=== PATIENT | female | born 2000 | race Caucasian/White ===

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

== ENCOUNTER 2021-12-05 14:12 | Observation (INO) ==
[2021-12-05 16:21] LABS: Basophils # (auto) 0.04 K/uL (0-0.2); Basophils % (auto) 0.4 %; Eosinophils # (auto) 0.15 K/uL (0-0.50); Eosinophils % (auto) 1.6 %; Hematocrit (blood only) 40.4 % (34.1-44.9); Hemoglobin 13.4 g/dl (12.0-16.0); Immature Granulocytes # (auto) 0.02 K/uL (0.00-0.02); Immature Granulocytes % (auto) 0.2 %; Lymphocytes # (auto) 2.52 K/uL (1.2-3.4); Lymphocytes % (auto) 26.2 %; Mean Corpuscular Hemoglobin 27.5 pg (25.0-34.0); Mean Corpuscular Hgb Conc 33.2 g/dL (32.0-36.0); Mean Corpuscular Volume 82.8 fL (80.0-100.0); Mean Platelet Volume 9.9 fL (9.4-12.3); Monocytes # (auto) 0.68 K/uL (0.24-0.82); Monocytes % (auto) 7.1 %; Neutrophils # (auto) 6.21 K/uL (1.4-6.5); Neutrophils % (auto) 64.5 %; Platelet Count 418 K/uL (130-400); RDW Coefficient of Variation 12.7 % (11.5-14.5); Red Blood Count 4.88 M/uL (3.93-5.22); White Blood Count 9.62 K/ul (4.8-10.8)
[2021-12-05] MEDS ORDERED: SODIUM CHLORIDE 0.9% 1000ML 500 ML IV ONE (16:37)
[2021-12-05] MEDS ORDERED: MoRPHine SULFATE 4 MG/ML 1 ML CARP\\VIAL IV STA ×2 (16:37→18:45)
[2021-12-05] MEDS ORDERED: ONDANSETRON INJ 2 MG/ML 2 ML VIAL IV STA (16:37)
--- NOTE | 2021-12-05 16:41 | Emergency Department Note ---
Impression & Plan Cholelithiasis ADMIT ED Provider Note HPI: The patient is a 21-year-old female who presents emergency department with a chief complaint of right upper quadrant abdominal pain. Patient states she has had the symptoms for about the past 3 to 4 days. Patient states it is a burning type pain in her right upper quadrant, epigastrium, does radiate somewhat from this area to her right flank and back. Patient states she has not had any vomiting. Patient states she was concerned about potential gallbladder pathology and therefore came to the ED today for assessment. On arrival the patient is hypertensive but otherwise in no acute distress, she is saturating well on room air, heart rate is within normal limits, she is otherwise nontoxic- appearing on my initial evaluation. ROS: -GI: Right upper quadrant pain, nausea *10 point review systems was conducted and is otherwise negative unless stated above *Outpatient medications and allergy history reviewed PE: General: Alert, NAD, obese HEENT: Normocephalic, atraumatic Eyes: Extraocular eye movement is intact, no scleral erythema Pulmonary: Clear to auscultation bilaterally, no wheezing Cardio: Regular rate and rhythm GI: Abdomen is soft, tenderness in the right upper quadrant to palpation, no guarding or rigidity : No suprapubic tenderness MSK: No evidence of trauma or malformation of the extremities, no edema Skin: No evidence of rash Neuro: Alert, no focal deficits Psychiatric: Cooperative Medical Decision Making: Patient presented to the emergency department with some right upper quadrant discomfort, nausea, stated that this discomfort was radiating to her back. Patient describes it as a "burning". Patient was concerned about potential gallbladder pathology therefore presented to the ED for further evaluation today. IV was established, patient was given IV morphine and IV Zofran for symptoms, she was ordered an IV fluid bolus. Ultrasound imaging of the right upper quadrant was also ordered. Ultrasound imaging shows evidence of gallbladder distention with cholelithiasis, no pericholecystic fluid is noted. Patient does not have any transaminitis. On my reassessment following morphine and Zofran the patient is continue to have discomfort. Case was discussed with on-call general surgery, Dr. Ward, who is in agreement for consultation, midlevel provider for general surgery, Talha Gomez, did evaluate the patient at the bedside, given the patient's complaint of ongoing pain she is requesting admission for general surgery evaluation for possible cholecystectomy. Patient will be admitted to the general surgery service of Dr. Ward following the bedside evaluation by the physician commissary assistant. Patient was admitted in stable condition for further care. Diagnosis: 1. Cholelithiasis with gallbladder distention 2. Abdominal pain, intractable 3. Nausea and vomiting Disposition: Admission Senthil Orozco DO Emergency Medicine Past Med/Surg History Medical History (Updated 12/05/21 @ 23:42 by Senthil Orozco DO) Asthma Social History Smoking Status: Never smoker Preferred Language: [place] Feels Safe at Home: Yes Allergies Allergies Allergy/AdvReac Type Severity Reaction Status Date / Time No Known Allergies Allergy Unverified 12/05/21 20:17 Home Meds Home Medications Medication Instructions Recorded Confirmed cetirizine 10 mg tablet (Zyrtec) 10 mg PO DAILY PRN ALLERGIES 10/30/19 12/05/21 cyanocobalamin (vitamin B-12) 1,000 mcg PO DAILY 10/30/19 12/05/21 1,000 mcg tablet (Vitamin B-12) levothyroxine 25 mcg tablet 25 mcg PO DAILY 10/30/19 12/05/21 triamcinolone acetonide 0.1 % 1 applic topical BID PRN flare ups 10/30/19 12/05/21 topical cream drospirenone 3 mg-ethinyl 1 tab PO DAILY 12/05/21 12/05/21 estradiol 0.02 mg tablet (Vestura (28)) ibuprofen 200 mg tablet 400 mg PO Q6H PRN Pain 12/05/21 12/05/21 metformin 500 mg tablet,extended 1,000 mg PO DAILY 12/05/21 12/05/21 release 24 hr omeprazole 20 mg capsule,delayed 20 mg PO DAILY 12/05/21 12/05/21 release ondansetron HCl 4 mg tablet 4 mg PO Q6 PRN Nausea 12/05/21 12/05/21 Results & Data (ED) Vital Signs Vital Signs - 24 hr 12/05/21 14:38 12/05/21 17:00 12/05/21 19:00 Temperature 36.4 C L Temperature Source Temporal Artery Scan Pulse Rate 98 H Pulse Rate [Left Finger] 82 87 Pulse Rhythm Regular Pulse Rhythm [Left Finger] Regular Pulse Strength Normal Respiratory Rate 20 18 22 Respiratory Effort / Characteristics Non-Labored Spontaneous Respiratory Depth Normal Normal Respiratory Pattern Regular Blood Pressure 181/106 H Blood Pressure [Left Arm] 130/79 132/79 Blood Pressure Mean 131 Blood Pressure Mean [Left Arm] 96 96 Blood Pressure Position Sitting Blood Pressure Position [Left Arm] Semi-fowlers Pulse Oximetry 100 100 98 Oxygen Delivery Method Room Air Room Air Room Air Sepsis Recent Fever Within 48 Hours No Sepsis New/Unexplained Change in Mental Status No Sepsis Action Taken by Nursing No Action Required Laboratory Data Result diagrams: 12/05/21 Unknown 12/05/21 Unknown Lab Results 12/05/21 12/05/21 Range/Units 17:02 17:07 Urine Color Yellow Urine Appearance Cloudy A (Clear) Urine pH 5.5 (4.5-7.5) Ur Specific [place] 1.023 (1.000-1.030) Urine Protein Negative (Negative) Urine Glucose (UA) Negative (Negative) Urine Ketones Negative (Negative) Urine Blood Negative (Negative) Urine Nitrite Negative (Negative) Urine Bilirubin Negative (Negative) Urine Urobilinogen Negative (Negative) Ur Leukocyte Esterase 1+ H (Negative) Urine WBC (Auto) 10-30 H (0-5) /hpf Urine RBC (Auto) 10-30 H (0-4) /hpf U Hyaline Cast (Auto) 5-10 H (0-5) /lpf U Epithel Cells (Auto) >30 H (0-5) /lpf Urine Bacteria (Auto) 3+ H (Negative) POC Ur Test NEG (NEG) Administered Medications Lactated Ringer's (Lr) 1,000 mls @ 75 mls/hr IV .[id number] [facility] Stop: 01/04/22 19:59 Last Admin: 12/05/21 23:37 Dose: 75 mls/hr Documented By: Infusion: 12/05/21 23:37 Dose: 75 mls/hr Documented By: Admin: 12/05/21 20:35 Dose: 75 mls/hr Documented By: SANDY Cefoxitin Sodium 2,000 mg/ (Dextrose) 60 mls @ 100 mls/hr IV Q6H [facility] Stop: 12/15/21 20:29 Last Infusion: 12/05/21 23:26 Dose: 100 mls/hr Documented By: Admin: 12/05/21 22:45 Dose: 100 mls/hr Documented By: SANDY Triamcinolone Acetonide (Triamcinolone Acet 0.1% Cr 15 Gm Tube) 1 appln TOP BID DEDE Stop: 01/04/22 23:21 Last Admin: 12/05/21 23:37 Dose: Not Given Documented By: BENY Discontinued Medications Acetaminophen (Acetaminophen 1000 Mg/100 Ml Iv) Confirm Administered Dose 1,000 mg IV .STK-MED ONE Stop: 12/05/21 19:54 Last Admin: 12/05/21 20:05 Dose: 1,000 mg Documented By: SANDY Sodium Chloride (Nss 1000ml) 500 mls @ 999 mls/hr IV .Q31M ONE Stop: 12/05/21 17:07 Last Infusion: 12/05/21 19:01 Dose: 0 mls/hr Documented By: Admin: 12/05/21 16:55 Dose: 999 mls/hr Documented By: LEN Morphine Sulfate (Morphine Sulfate 4 Mg/Ml 1 Ml Carp\\Vial) 4 mg IV NOW STA Stop: 12/05/21 16:38 Last Admin: 12/05/21 16:58 Dose: 4 mg Documented By: LEN Morphine Sulfate (Morphine Sulfate 4 Mg/Ml 1 Ml Carp\\Vial) 4 mg IV NOW STA Stop: 12/05/21 18:46 Last Admin: 12/05/21 18:55 Dose: 4 mg Documented By: SANDY Ondansetron HCl (Ondansetron Inj 2 Mg/Ml 2 Ml Vial) 4 mg IV NOW STA Stop: 12/05/21 16:38 Last Admin: 12/05/21 16:56 Dose: 4 mg Documented By: LEN Ondansetron HCl (Ondansetron Inj 2 Mg/Ml 2 Ml Vial) Confirm Administered Dose 4 mg .ROUTE .STK-MED ONE Stop: 12/05/21 19:57 Last Admin: 12/05/21 20:06 Dose: 4 mg Documented By: SANDY Imaging Data Radiologist's Impression: Gallbladder Ultrasound 12/05/21 16:37 US gallbladder HISTORY: 21 years-old Female RUQ pain, nausea acute right upper quadrant abdominal pain with nausea COMPARISON: CT abdomen and pelvis 09/21/2016 TECHNIQUE: Multiple real-time sonographic images of the abdominal right upper quadrant were obtained assessing grayscale appearance and color flow FINDINGS: The pancreas is mostly obscured by bowel gas. Unremarkable liver. No hepatic mass identified. The liver measures 16.5 cm in length. Mild gallbladder distention with shadowing cholelithiasis. The gallbladder wall measures within the upper limits of normal at 3 mm. No pericholecystic fluid. The sonographic Salter sign was unable to be assessed secondary to patient recently receiving pain medication. Nondilated common bile duct, 4 mm. The imaged right kidney is unremarkable without hydronephrosis. IMPRESSION: 1. Mildly distended gallbladder with cholelithiasis. The gallbladder wall measures within the upper limits of normal, however there is no appreciable pericholecystic fluid and the sonographic Salter sign was unable to be assessed. These findings could be correlated with nuclear medicine hepatobiliary scan to exclude acute cholecystitis. 2. No biliary ductal dilation. ACT 112: Negative or not required by law. The above report was generated using voice recognition software. It may contain grammatical, syntax or spelling errors. Electronically signed by: Tho Zhu M.D. 12/05/2021 5:48 PM Discharge Plan Visit Data Chief Complaint: Back Injury/Pain Stated Complaint: PAIN WHERE GALLBLADDER IS, SHOULDER AND BACK PAIN ED Provider: Senthil Orozco Discharge Problem: Cholelithiasis Patient Disposition: Admitted As Inpatient
[2021-12-05 16:46] LABS: Albumin Globulin Ratio 1.4 (0.9-2); Albumin Level 4.1 gm/dl (3.4-5.0); BUN Creatinine Ratio 14.1 (10-20); Bilirubin,Total 0.3 mg/dl (0.2-1.0); Calcium 9.3 mg/dl (8.5-10.1); Creatinine Clr Calc Pharmacy 182.8 ml/min; Est GFR (African American) 141.1 ml/min; Est GFR (Non-African American) 121.8 ml/min; Globulin 2.9 gm/dl (2.5-4.0)
[2021-12-05 17:25] LABS: Appearance Urine Cloudy (Clear); Bacteria Urine Automated 3+ (Negative); Bilirubin Urine Negative (Negative); Blood Urine Negative (Negative); Color Urine Yellow; Epithelial Cell Urine Auto >30 /lpf (0-5); Glucose Urine UA Negative (Negative); Ketones Urine Negative (Negative); Leukocyte Esterase Urine 1+ (Negative); Nitrite Urine Negative (Negative); Protein Urine Negative (Negative); Specific Gravity Urine 1.023 (1.000-1.030); Urobilinogen Urine Negative (Negative); pH Urine 5.5 (4.5-7.5)
--- NOTE | 2021-12-05 17:49 | Ultrasound Report ---
US gallbladder HISTORY: 21 years-old Female RUQ pain, nausea acute right upper quadrant abdominal pain with nausea COMPARISON: CT abdomen and pelvis 09/21/2016 TECHNIQUE: Multiple real-time sonographic images of the abdominal right upper quadrant were obtained assessing grayscale appearance and color flow FINDINGS: The pancreas is mostly obscured by bowel gas. Unremarkable liver. No hepatic mass identified. The chanelle er measures 16.5 cm in length. Mild gallbladder distention with shadowing cholelithiasis. The gallbla dder wall measures within the upper limits of normal at 3 mm. No pericholecystic fluid. The sonograph ic Salter sign was unable to be assessed secondary to patient recently receiving pain medication. Nondilated common bile duct, 4 mm. The imaged right kidney is unremarkable without hydronephrosis. IMPRESSION: 1. Mildly distended gallbladder with cholelithiasis. The gallbladder wall measures within the upper l imits of normal, however there is no appreciable pericholecystic fluid and the sonographic Salter sig n was unable to be assessed. These findings could be correlated with nuclear medicine hepatobiliary s can to exclude acute cholecystitis. 2. No biliary ductal dilation. ACT 112: Negative or not required by law. The above report was generated using voice recognition software. It may contain grammatical, syntax o r spelling errors. Electronically signed by: Tho Zhu M.D. 12/05/2021 5:48 PM
--- NOTE | 2021-12-05 19:48 | History & Physical Report ---
Date of Service December 05, 2021 Assessment & Plan (1) Cholelithiasis: Plan: I suspect the patient is suffering from biliary colic. Although there is no overt convincing evidence of cholecystitis on her ultrasound she may be developing this condition as her gallbladder wall is borderline in thickness. As patient is having continued pain despite administration of intravenous morphine we will proceed as follows: Will admit to the hospital Provide analgesics Provide antiemetics Provide hydration with IV fluids We will allow her to have clear liquids up until midnight tonight, at which time she will be made n.p.o. except for medicines We will administer antibiotics in the form of cefoxitin We will tentatively plan on a laparoscopic, possible open cholecystectomy with Dr. Ward on 12/06/2021 We will check a preoperative COVID test Additional recommendations be forthcoming based on operative findings and her postoperative recovery Will use SCDs for DVT prevention, no chemical means due to planned surgery She will be a level 1 full code History of Present Illness Chief Complaint: Cholelithiasis Primary Care Provider: Elvis Garcia MD This is a 21-year-old female who presented to the emergency department secondary to abdominal pain. Patient says that she has been having abdominal pain for several months. She says that the pain is primarily located in her right flank as well as the right upper quadrant. She says that the pain oftentimes come several hours after eating. She says the pain usually self resolves. With the patient's current presentation she notes that she has been having pain for approximately 4 days and it has been constant over this time. Again the patient is located in the right upper quadrant of her abdomen with some radiation to her back. She has had nausea without vomiting. She denies any fevers, shakes, or chills. She notes that the pain is improved with morphine and does not note any provocative factors. Pain currently is not radiating. She denies any prior abdominal surgeries. She notes that her last oral intake was at approximate 12:00 PM today. Concerning past medical history the patient does note that she has hypothyroidism, insulin resistance, and GERD Concerning past surgical history she denies any prior surgeries Concerning social history she is a non-smoker Concerning family history she notes a family history of coronary artery disease Since arrival to the emergency department patient has had labs and imaging which I independent reviewed. CBC revealed white blood cell count, hemoglobin and hematocrit were all normal. Platelet count was 418,000. Chemistry profile showed sodium, potassium, BUN, and creatinine were normal. Patient did not have any elevation of her total bilirubin, transaminases, alkaline phosphatase, or lipase. Urinalysis did show 1+ leukocyte Estrace and 10-30 white blood cells per high-power field along with 3+ bacteria. Urine test was noted to be negative. A COVID test is pending. A gallbladder ultrasound showed that her gallbladder was mildly distended with numerous gallstones. The gallbladder wall was within the upper limits of normal thickness at approximately 3 mm. There is no pericholecystic fluid noted. At the time of my interview the patient was in no distress but did have persistent right upper quadrant pain despite receiving 8 mg of intravenous morphine. Allergies Allergy/AdvReac Type Severity Reaction Status Date / Time No Known Allergies Allergy Unverified 10/30/19 21:54 Home Medications Medication Instructions Recorded Confirmed Type cetirizine 10 mg tablet (Zyrtec) 10 mg PO DAILY PRN ALLERGIES 10/30/19 10/30/19 History cyanocobalamin (vitamin B-12) 1,000 mcg PO DAILY 10/30/19 10/30/19 History 1,000 mcg tablet (Vitamin B-12) drospirenone 3 mg-ethinyl 1 tab PO DAILY 10/30/19 10/30/19 History estradiol 0.02 mg tablet (Gianvi (28)) levothyroxine 25 mcg tablet 25 mcg PO DAILY 10/30/19 10/30/19 History triamcinolone acetonide 0.1 % 1 applic topical BID 10/30/19 10/30/19 History topical cream Past Med/Surg History Medical History (Updated 12/05/21 @ 19:47 by Herber Gomez PA-C) Asthma Social History Smoking Status: Never smoker Preferred Language: Israeli Feels Safe at Home: Yes Review of Systems Constitutional: no fever Eyes: no eye pain Ear, Nose, Mouth, Throat: no ear pain Respiratory: no cough and no dyspnea Cardiovascular: no chest pain Gastrointestinal: as per Subjective / HPI, + abdominal pain and + nausea; no vomiting Genitourinary: no dysuria Musculoskeletal: + back pain (Right flank) Integumentary: no rash Neurologic: no localized weakness Physical Exam Constitutional: well developed, well nourished and + obese; no acute distress Eyes: + anicteric sclerae ENMT: Ears: no hearing impairment and no external ear abnormality Mucous membranes are moist Neck: trachea midline Respiratory: normal respiratory effort; no respiratory distress and no labored breathing Breath sounds are slightly decreased at bases Cardiovascular: Rate/Rhythm: regular rate and regular rhythm Gastrointestinal (Abdomen): Abdomen is rotund but soft and nondistended. It is nonrigid. Bowel sounds are present. There is no rebound tenderness or guarding. The patient did not have pain with palpation in the right upper quadrant with a positive Salter sign. Musculoskeletal: No calf tenderness Skin: no rashes Neurologic: moves all extremities Psychiatric: A+Ox3, euthymic affect Results & Data Results & Data ([facility]) Vital Signs (Past 12 Hours) Vital Signs Temp Pulse Pulse Resp BP BP Pulse Ox 12/05/21 17:00 82 18 130/79 100 12/05/21 14:38 36.4 C L 98 H 20 181/106 H 100 O2 Del Method 12/05/21 17:00 Room Air 12/05/21 14:38 Room Air Supervising Physician Co-Signing Physician Notes Patient discussed with JESUS Salazar, labs and imaging reviewed. 21 y/o morbidly obese female with abdominal pain. WBC and labs normal, US with stones, distention, borderline GBW. cholelithiasis and intractable biliary colic. Will admit for obs, plan for lap kathrine tomorrow based on bed and OR availability. PG Care Time/CCT Total # of Minutes Spent Total Time Spent with Patient: Total time spent is greater than 50% in coordination of care (as documented) at patient's floor/unit and/or counseling patient: Coding Level of Care Code INT OBSERVATION CARE 70M LVL 3 Diagnoses Cholelithiasis K80.20
[2021-12-05] MEDS ORDERED: ONDANSETRON INJ 2 MG/ML 2 ML VIAL IV PRN (19:49)
[2021-12-05] MEDS ORDERED: MoRPHine SULFATE 4 MG/ML 1 ML CARP\\VIAL IV PRN (19:49)
[2021-12-05] MEDS ORDERED: ACETAMINOPHEN 1000 MG/100 ML IV IV ONE (19:53)
[2021-12-05] MEDS ORDERED: ONDANSETRON INJ 2 MG/ML 2 ML VIAL ONE (19:56)
[2021-12-05] MEDS: LACTATED RINGER'S 1,000 ML IV SCH ×2 (20:35→23:37)
[2021-12-05] MEDS: cefOXitin 2,000 MG in DEXTROSE 5% 50 ML IV SCH (22:45)
[2021-12-05] MEDS: TRIAMCINOLONE ACET 0.1% CR 15 GM TUBE TOP SCH (23:37)
[2021-12-06] MEDS: cefOXitin 2,000 MG in DEXTROSE 5% 50 ML IV SCH ×2 (02:08→07:49)
[2021-12-06] MEDS ORDERED: LEVOTHYROXINE SODIUM 25 MCG TABLET PO SCH (06:30)
[2021-12-06] MEDS: ACETAMINOPHEN 1,000 MG/100 ML VIAL IV PRN ×2 (06:40→14:12)
[2021-12-06 06:45] LABS: Basophils # (auto) 0.03 K/uL (0-0.2); Basophils % (auto) 0.4 %; Eosinophils # (auto) 0.15 K/uL (0-0.50); Eosinophils % (auto) 1.9 %; Hematocrit (blood only) 35.1 % (34.1-44.9); Hemoglobin 11.6 g/dl (12.0-16.0); Immature Granulocytes # (auto) 0.01 K/uL (0.00-0.02); Immature Granulocytes % (auto) 0.1 %; Lymphocytes # (auto) 2.92 K/uL (1.2-3.4); Lymphocytes % (auto) 37.9 %; Mean Corpuscular Hemoglobin 27.2 pg (25.0-34.0); Mean Corpuscular Volume 82.4 fL (80.0-100.0); Mean Platelet Volume 9.6 fL (9.4-12.3); Monocytes # (auto) 0.57 K/uL (0.24-0.82); Monocytes % (auto) 7.4 %; Neutrophils # (auto) 4.02 K/uL (1.4-6.5); Neutrophils % (auto) 52.3 %; Platelet Count 321 K/uL (130-400); RDW Coefficient of Variation 12.7 % (11.5-14.5); RDW Standard Deviation 38.2 fL (36.4-46.3); Red Blood Count 4.26 M/uL (3.93-5.22)
[2021-12-06 07:14] LABS: Albumin Globulin Ratio 1.5 (0.9-2); Albumin Level 3.5 gm/dl (3.4-5.0); BUN Creatinine Ratio 12.9 (10-20); Bilirubin,Total 0.4 mg/dl (0.2-1.0); Calcium 8.7 mg/dl (8.5-10.1); Creatinine Clr Calc Pharmacy 184.8 ml/min; Est GFR (African American) 143.5 ml/min; Est GFR (Non-African American) 123.9 ml/min; Globulin 2.4 gm/dl (2.5-4.0); Potassium 4.3 mmol/L (3.5-5.1); Total Protein 5.9 gm/dl (6.0-8.3)
[2021-12-06] MEDS: TRIAMCINOLONE ACET 0.1% CR 15 GM TUBE TOP SCH (07:45)
[2021-12-06] MEDS ORDERED: NEOSTIGMINE METHYLSULFATE 1 MG/ML 10ML VIAL ONE ×5 (09:09→10:38)
[2021-12-06] MEDS ORDERED: fentaNYL citrate 100 MCG/2 ML VIAL ONE ×3 (09:09→11:24)
[2021-12-06] MEDS ORDERED: ONDANSETRON INJ 2 MG/ML 2 ML VIAL ONE (09:09)
[2021-12-06] MEDS ORDERED: GLYCOPYRROLATE 0.2 MG/ML VIAL ONE ×2 (09:09→10:38)
[2021-12-06] MEDS ORDERED: DEXAMETHASONE SOD INJ 4 MG/ML VIAL ONE (09:09)
[2021-12-06] MEDS ORDERED: ROCURONIUM BROMIDE 10 MG/ML 5 ML VIAL IV ONE (09:09)
[2021-12-06] MEDS ORDERED: PROPOFOL IV EMULSION 10 MG/ML 20 ML VIAL IV ONE (09:09)
--- NOTE | 2021-12-06 09:26 | Anesthesiology Consultation ---
Date of Service December 06, 2021 Assessment & Plan (1) Encounter for pre-operative examination: Chart Review Chart Review: Acceptable Risk for Surgery and Patient NOT seen in Pre Admission Testing Consults Requested none History Surgery Operation Date: 12/06/21 11:00 Proposed Procedures p Laparoscopic Cholecystectomy - Anmol Ward DO, EVELYN Height/Weight Height: 5 ft 7 in Weight: 137.8 kg Allergies Allergy/AdvReac Type Severity Reaction Status Date / Time No Known Allergies Allergy Unverified 12/05/21 20:17 Medications Home Medications Medication Instructions Recorded Confirmed Last Taken cetirizine 10 mg tablet (Zyrtec) 10 mg PO DAILY PRN ALLERGIES 10/30/19 12/05/21 Unknown cyanocobalamin (vitamin B-12) 1,000 mcg PO DAILY 10/30/19 12/05/21 Unknown 1,000 mcg tablet (Vitamin B-12) levothyroxine 25 mcg tablet 25 mcg PO DAILY 10/30/19 12/05/21 12/05/21 11:00 triamcinolone acetonide 0.1 % 1 applic topical BID PRN flare ups 10/30/19 12/05/21 Unknown topical cream drospirenone 3 mg-ethinyl 1 tab PO DAILY 12/05/21 12/05/21 Unknown estradiol 0.02 mg tablet (Vestura (28)) ibuprofen 200 mg tablet 400 mg PO Q6H PRN Pain 12/05/21 12/05/21 Unknown metformin 500 mg tablet,extended 1,000 mg PO DAILY 12/05/21 12/05/21 12/05/21 11:00 release 24 hr omeprazole 20 mg capsule,delayed 20 mg PO DAILY 12/05/21 12/05/21 Unknown release ondansetron HCl 4 mg tablet 4 mg PO Q6 PRN Nausea 12/05/21 12/05/21 Unknown Active Medications Generic Name Dose Route Start Last Admin Trade Name Freq PRN Reason Stop Dose Admin Lactated Ringer's 1,000 mls @ 75 mls/hr 12/05/21 20:00 12/06/21 08:29 Lr IV 01/04/22 19:59 75 mls/hr .[id number] DEDE Infusion Acetaminophen 1,000 mg in 100 mls @ 400 mls/hr 12/05/21 19:49 12/06/21 07:13 Ofirmev IV 12/08/21 19:48 Infused Q8H PRN Infusion pain Cefoxitin Sodium 2,000 mg/ 60 mls @ 100 mls/hr 12/05/21 20:30 12/06/21 08:29 Dextrose IV 12/15/21 20:29 Infused Q6H DEDE Infusion Levothyroxine Sodium 25 mcg 12/06/21 06:30 12/06/21 05:41 Levothyroxine Sodium 25 Mcg Tablet PO 01/05/22 06:29 25 mcg DAILYBB DEDE Administration Miscellaneous 1 each 12/06/21 00:00 12/06/21 07:45 Order Awaiting Action: Drospirenone-Ethinyl Estradiol [Gieladiovi (28)] 3-0.02 Mg Tablet N/A 01/05/22 00:00 Not Given QS DEDE Morphine Sulfate 3 mg 12/05/21 19:49 12/06/21 02:28 Morphine Sulfate 4 Mg/Ml 1 Ml Carp\Vial IV 12/19/21 19:48 3 mg Q3H PRN Administration Pain Triamcinolone Acetonide 1 appln 12/05/21 23:22 12/06/21 07:45 Triamcinolone Acet 0.1% Cr 15 Gm Tube TOP 01/04/22 23:21 Not Given BID DEDE NPO Date Last Intake of Fluids: 12/05/21 Time Last Intake of Fluids: 23:00 Date Last Intake of Solids: 12/05/21 Time Last Intake of Solids: 12:00 Past Medical History Medical History (Updated 12/06/21 @ 09:26 by Troy Grossman, DO) Asthma Social History Smoking Status: Never smoker Do You Dip or Chew Tobacco: No Hx Alcohol Use: No Hx Substance Use: No Physical Exam Vital Signs Last Vital Signs Temp 97.9 F 12/06/21 09:15 Pulse 75 12/06/21 09:15 Resp 22 12/06/21 09:15 BP 161/89 H 12/06/21 09:15 Pulse Ox 98 12/06/21 09:15 O2 Del Method 12/06/21 09:15 Testing Laboratory Results 12/06/21 06:34 12/06/21 06:34 Urine Color Yellow 12/05/21 17:02 Urine Appearance Cloudy (Clear) A 12/05/21 17:02 Urine pH 5.5 (4.5-7.5) 12/05/21 17:02 Ur Specific [place] 1.023 (1.000-1.030) 12/05/21 17:02 Urine Protein Negative (Negative) 12/05/21 17:02 Urine Glucose (UA) Negative (Negative) 12/05/21 17:02 Urine Ketones Negative (Negative) 12/05/21 17:02 Urine Nitrite Negative (Negative) 12/05/21 17:02 Ur Leukocyte Esterase 1+ (Negative) H 12/05/21 17:02 Urine WBC (Auto) 10-30 /hpf (0-5) H 12/05/21 17:02 Urine RBC (Auto) 10-30 /hpf (0-4) H 12/05/21 17:02 U Hyaline Cast (Auto) 5-10 /lpf (0-5) H 12/05/21 17:02 U Epithel Cells (Auto) >30 /lpf (0-5) H 12/05/21 17:02 Urine Bacteria (Auto) 3+ (Negative) H 12/05/21 17:02 12/05/21 17:07 POC Ur Test NEG
[2021-12-06] MEDS ORDERED: ePHEDrine sulfate 50 MG/ML AMP IV PRN (09:45)
[2021-12-06] MEDS ORDERED: PROMETHAZINE HCL 6.25 MG in SODIUM CHLORIDE 0.9% 50 ML IV PRN (09:45)
[2021-12-06] MEDS ORDERED: ONDANSETRON INJ 2 MG/ML 2 ML VIAL IV PRN (09:45)
[2021-12-06] MEDS ORDERED: ATROPINE SULFATE 0.1 MG/ML 10ML SYR IV PRN (09:45)
--- NOTE | 2021-12-06 09:50 | Surgery Progress Note ---
Date of Service December 06, 2021 Assessment & Plan (1) Cholelithiasis: Plan: 21year old morbidly obese female with cholelithiasis and intractable biliary colic plan for laparoscopic cholecystectomy with possible cholangiogram today in the operating room risks discussed to include but not limited to bleeding, infection, retained stone, bile leak, open surgery, damage to surrounding structures including bile duct, need for future or more extensive surgery, failure to treat symptoms, and risks of anesthesia. Likely discharge this afternoon Admission and Anticipated Discharge Date Admission Date: December 05, 2021 Subjective 21-year-old female admitted with cholelithiasis. Still with mild right upper quadrant pain. Physical Exam Constitutional: WD/WN, vitals as above + morbidly obese Respiratory: normal respiratory effort, lungs clear to auscultation Cardiovascular: RRR, no murmur, no edema Gastrointestinal (Abdomen): Percussion/Palpation: + abdomen tender (Mild tenderness to palpation in the right upper quadrant) and abdomen soft; no guarding, abdomen not rigid and no hepatosplenomegaly Results & Data ([facility]) Vital Signs (Past 12 Hours) Vital Signs Temp Pulse Resp BP BP Pulse Ox O2 Del Method 12/06/21 09:15 36.6 C 75 22 161/89 H 98 Room Air 12/06/21 07:17 37.1 C 70 16 115/70 98 Room Air 12/05/21 23:22 37.1 C 79 16 123/81 99 Room Air 12/05/21 22:40 80 20 134/77 99 Room Air 12/05/21 22:00 78 22 145/76 H 99 Room Air Laboratory Results Laboratory Results - last 24 hr 12/05/21 12/05/21 12/05/21 17:02 17:07 20:40 WBC RBC Hgb Hct MCV MCH MCHC RDW Std Deviation RDW Coeff of Nayely Plt Count MPV Immature Gran % (Auto) Neut % (Auto) Lymph % (Auto) [place] % (Auto) Eos % (Auto) Baso % (Auto) Neut # (Auto) Lymph # (Auto) [place] # (Auto) Eos # (Auto) Baso # (Auto) Immature Gran # (Auto) Sodium Potassium Chloride Carbon Dioxide Anion Gap BUN Creatinine Est Cr Clr Drug Dosing Est GFR ( Amer) Est GFR (Non-Af Amer) BUN/Creatinine Ratio Glucose Calcium Total Bilirubin AST ALT Alkaline Phosphatase Total Protein Albumin Globulin Albumin/Globulin Ratio Lipase Urine Color Yellow Urine Appearance Cloudy A Urine pH 5.5 Ur Specific [place] 1.023 Urine Protein Negative Urine Glucose (UA) Negative Urine Ketones Negative Urine Blood Negative Urine Nitrite Negative Urine Bilirubin Negative Urine Urobilinogen Negative Ur Leukocyte Esterase 1+ H Urine WBC (Auto) 10-30 H Urine RBC (Auto) 10-30 H U Hyaline Cast (Auto) 5-10 H U Epithel Cells (Auto) >30 H Urine Bacteria (Auto) 3+ H POC Ur Test NEG SARS-CoV-2, RNA, NAAT NEGATIVE 12/05/21 12/05/21 12/06/21 Unknown Unknown 06:34 WBC 9.62 7.70 RBC 4.88 4.26 Hgb 13.4 11.6 L Hct 40.4 35.1 MCV 82.8 82.4 MCH 27.5 27.2 MCHC 33.2 33.0 RDW Std Deviation 38.0 38.2 RDW Coeff of Nayeyl 12.7 12.7 Plt Count 418 H 321 MPV 9.9 9.6 Immature Gran % (Auto) 0.2 0.1 Neut % (Auto) 64.5 52.3 Lymph % (Auto) 26.2 37.9 [place] % (Auto) 7.1 7.4 Eos % (Auto) 1.6 1.9 Baso % (Auto) 0.4 0.4 Neut # (Auto) 6.21 4.02 Lymph # (Auto) 2.52 2.92 [place] # (Auto) 0.68 0.57 Eos # (Auto) 0.15 0.15 Baso # (Auto) 0.04 0.03 Immature Gran # (Auto) 0.02 0.01 Sodium 140 Potassium 4.0 Chloride 107 Carbon Dioxide 26 Anion Gap 7 BUN 10 Creatinine 0.71 Est Cr Clr Drug Dosing 182.8 Est GFR ( Amer) 141.1 Est GFR (Non-Af Amer) 121.8 BUN/Creatinine Ratio 14.1 Glucose 91 Calcium 9.3 Total Bilirubin 0.3 AST 11 L ALT 15 Alkaline Phosphatase 88 Total Protein 7.0 Albumin 4.1 Globulin 2.9 Albumin/Globulin Ratio 1.4 Lipase 13 Urine Color Urine Appearance Urine pH Ur Specific [place] Urine Protein Urine Glucose (UA) Urine Ketones Urine Blood Urine Nitrite Urine Bilirubin Urine Urobilinogen Ur Leukocyte Esterase Urine WBC (Auto) Urine RBC (Auto) U Hyaline Cast (Auto) U Epithel Cells (Auto) Urine Bacteria (Auto) POC Ur Test SARS-CoV-2, RNA, NAAT 12/06/21 06:34 WBC RBC Hgb Hct MCV MCH MCHC RDW Std Deviation RDW Coeff of Nayely Plt Count MPV Immature Gran % (Auto) Neut % (Auto) Lymph % (Auto) [place] % (Auto) Eos % (Auto) Baso % (Auto) Neut # (Auto) Lymph # (Auto) [place] # (Auto) Eos # (Auto) Baso # (Auto) Immature Gran # (Auto) Sodium 139 Potassium 4.3 Chloride 107 Carbon Dioxide 26 Anion Gap 6 BUN 9 Creatinine 0.70 Est Cr Clr Drug Dosing 184.8 Est GFR ( Amer) 143.5 Est GFR (Non-Af Amer) 123.9 BUN/Creatinine Ratio 12.9 Glucose 85 Calcium 8.7 Total Bilirubin 0.4 AST 8 L ALT 12 Alkaline Phosphatase 72 Total Protein 5.9 L Albumin 3.5 Globulin 2.4 L Albumin/Globulin Ratio 1.5 Lipase Urine Color Urine Appearance Urine pH Ur Specific [place] Urine Protein Urine Glucose (UA) Urine Ketones Urine Blood Urine Nitrite Urine Bilirubin Urine Urobilinogen Ur Leukocyte Esterase Urine WBC (Auto) Urine RBC (Auto) U Hyaline Cast (Auto) U Epithel Cells (Auto) Urine Bacteria (Auto) POC Ur Test SARS-CoV-2, RNA, NAAT Diagnostic Findings US gallbladder HISTORY: 21 years-old Female RUQ pain, nausea acute right upper quadrant abdominal pain with nausea COMPARISON: CT abdomen and pelvis 09/21/2016 TECHNIQUE: Multiple real-time sonographic images of the abdominal right upper quadrant were obtained assessing grayscale appearance and color flow FINDINGS: The pancreas is mostly obscured by bowel gas. Unremarkable liver. No hepatic mass identified. The liver measures 16.5 cm in length. Mild gallbladder distention with shadowing cholelithiasis. The gallbladder wall measures within the upper limits of normal at 3 mm. No pericholecystic fluid. The sonographic Salter sign was unable to be assessed secondary to patient recently receiving pain medication. Nondilated common bile duct, 4 mm. The imaged right kidney is unremarkable without hydronephrosis. IMPRESSION: 1. Mildly distended gallbladder with cholelithiasis. The gallbladder wall measures within the upper limits of normal, however there is no appreciable pericholecystic fluid and the sonographic Salter sign was unable to be assessed. These findings could be correlated with nuclear medicine hepatobiliary scan to exclude acute cholecystitis. 2. No biliary ductal dilation. PG Care Time/CCT Total # of Minutes Spent Total Time Spent with Patient: Total time spent is greater than 50% in coordination of care (as documented) at patient's floor/unit and/or counseling patient: Coding Level of Care Code 33116 Subseq Obs Care Lvl 2 Diagnoses Cholelithiasis K80.20 Biliary obstruction: without biliary obstruction Cholecystitis presence: without cholecystitis Cholelithiasis location: gallbladder (1) Cholelithiasis Biliary obstruction: without biliary obstruction Cholecystitis presence: without cholecystitis Cholelithiasis location: gallbladder Qualified Code(s): K80.20 - Calculus of gallbladder without cholecystitis without obstruction
[2021-12-06] MEDS ORDERED: BUPIVACAINE 0.5 % 5 MG/1 ML MPF 30ML VIAL ONE (09:57)
--- NOTE | 2021-12-06 11:19 | Operative Report ---
PG Post Operative Report Pre & Post Diagnosis Operation Date: 12/06/21 11:00 Pre-Op Diagnosis: cholelithiasis Post-Op Diagnosis: cholelithiasis, cholecystitis I identified the patient and participated in the time-out.: Yes Procedure Operation Date: 12/06/21 11:00 Actual Procedures p Laparoscopic Cholecystectomy - Anmol Ward DO, FACS Surgeon Anmol Ward DO, FACS Ginner Helper Corinne De Paz Estimated Blood Loss 5 Findings Consistent with Post-Op Diagnosis Mild inflammation of the gallbladder. Critical view of safety obtained, cystic duct and artery doubly clipped and divided. Specimens Gallbladder Anesthesia Type General Complications none Disposition Accompanied Patient To Recovery: No Disposition: Recovery Room Indications 21-year-old morbidly obese female admitted for cholelithiasis and intractable biliary colic, plan for laparoscopic cholecystectomy with possible cholangiogram. The risks of the procedure were discussed, all questions were answered, and the patient agreed to proceed with surgery as planned. Description of Procedure The patient was properly identified, consented, and taken to the operating room where she was placed in the supine position. General endotracheal anesthesia was induced. SCDs and a safety belt were placed. Preoperative antibiotics were administered. The patient's abdomen was prepped and draped in the standard sterile fashion. A surgical timeout was performed and all parties were in agreement that this was the correct patient and procedure to be performed and we continued as planned. An incision was made superior and to the left of the umbilicus overlying the rectus muscle and the Veress needle was inserted. Saline drop test confirmed entry into the peritoneum. The abdomen was insufflated with carbon dioxide which the patient tolerated without incident. The abdomen was then entered using the Optiview technique and a 5 mm trocar. The laparoscope was inserted and no damage from initial trocar or Veress needle placement was noted, no gross abnormalities were noted within the 4 quadrants of the abdomen. An 11 mm port was placed in the subxiphoid position and two 5 mm ports were then placed in the right subcostal position. The patient was placed in reverse Trendelenburg position and rotated towards the left. The gallbladder was distended and mildly inflamed. The dome of the gallbladder was retracted towards the left upper quadrant and the infundibulum was retracted toward the right lower quadrant revealing Calot's triangle. Peritoneal attachments were taken down with electrocautery and blunt dissection. The cystic duct and artery were circumferentially dissected. A window of safety was obtained showing the cystic duct entering the gallbladder with no aberrant structures noted. The cystic duct and artery were doubly clipped and divided. The gallbladder was then lifted off the gallbladder fossa with electrocautery. The gallbladder was placed in an Endo Catch bag and removed through the subxiphoid port site. The right upper quadrant was irrigated and hemostasis was found to be good. 5 mm trochars were removed under direct visualization and the abdomen was allowed to collapse. The subxiphoid port site fascia was closed with 0 Vicryl suture utilizing the Braeden-Femi device prior to removal of the ports. The wound was irrigated, and the skin of all ports was closed with 4- 0 Monocryl subcuticular sutures. Dermabond was placed over the wounds. The patient was extubated in the operating room and taken to the PACU where she recovered without apparent incident. All sponge, instrument and needle counts were correct at the conclusion of the procedure. The patient tolerated the procedure well. The physician's operating room assistant was present and scrubbed for the entirety of the case and was essential in positioning the patient, prepping and draping, retraction and exposure, driving the laparoscope, removal of the gallbladder, closure the incisions, and placement of the dressings. The patient's height is 5ft 7 in, weight 137.8 kg, BMI 47. This made the case significantly more difficult and added approximately 15 to 20% time onto the case due to the patient's body habitus. I attest to the content of the Intraoperative Record and any orders documented therein. Any exceptions are noted below.
[2021-12-06] MEDS: fentaNYL citrate 100 MCG/2 ML VIAL IV PRN ×4 (11:36→11:51)
[2021-12-06] MEDS ORDERED: MoRPHine SULFATE 4 MG/ML 1 ML CARP\\VIAL IV PRN (12:22)
[2021-12-06] MEDS ORDERED: oxyCODONE/ACETAMINOPHEN 5mg/325mg TAB PO PRN ×2 (12:22)
[2021-12-06] MEDS ORDERED: MoRPHine SULFATE 2 MG/ML CARP IV PRN (12:22)
--- NOTE | 2021-12-06 12:22 | Anesthesiology Progress Note ---
Date of Service December 06, 2021 Anesthesia Post Procedure Vital Signs Vital Signs: Temp Pulse Pulse Pulse Resp BP BP 12/06/21 12:05 69 20 12/06/21 12:00 97.3 F L 54 L 17 12/06/21 11:50 57 L 19 12/06/21 11:40 65 17 12/06/21 11:32 97.7 F 77 16 12/06/21 09:15 97.9 F 75 22 12/06/21 07:17 98.8 F 70 16 12/05/21 23:22 98.8 F 79 16 123/81 12/05/21 22:40 80 20 134/77 12/05/21 22:00 78 22 145/76 H 12/05/21 19:00 87 22 132/79 12/05/21 20:30 90 18 156/88 H 12/05/21 17:00 82 18 130/79 12/05/21 14:38 97.5 F L 98 H 20 181/106 H BP Pulse Ox O2 Del Method O2 Flow Rate 12/06/21 12:05 128/76 95 Room Air 12/06/21 12:00 132/73 94 Room Air 12/06/21 11:50 132/68 99 Oxymask 10 12/06/21 11:40 139/74 98 Oxymask 10 12/06/21 11:32 137/74 96 Oxymask 10 12/06/21 09:15 161/89 H 98 Room Air 12/06/21 07:17 115/70 98 Room Air 12/05/21 23:22 99 Room Air 12/05/21 22:40 99 Room Air 12/05/21 22:00 99 Room Air 12/05/21 19:00 98 Room Air 12/05/21 20:30 99 Room Air 12/05/21 17:00 100 Room Air 12/05/21 14:38 100 Room Air Pain Intensity Abdomen: Pain Intensity: 4 Transfer of Care Handoff Completed per policy Notes Mental Status: alert / awake / arousable and participated in evaluation Patient Amnestic to Procedure: Yes Nausea / Vomiting: adequately controlled Pain: adequately controlled Airway Patency, RR, SpO2: stable & adequate BP & HR: stable & adequate Hydration State: stable & adequate Anesthetic Complications: no major complications apparent and Pt Satisfied with anesthetic care
[2021-12-06] MEDS ORDERED: PROMETHAZINE HCL 12.5 MG in SODIUM CHLORIDE 0.9% 50 ML IV PRN (13:25)
[2021-12-06] MEDS ORDERED: CETIRIZINE HCL 10 MG TABLET PO PRN (15:49)
[2021-12-06] MEDS ORDERED: IBUPROFEN 200 MG TAB PO PRN (15:55)
[2021-12-06] MEDS: LACTATED RINGER'S 1,000 ML IV SCH (16:06)
--- NOTE | 2021-12-07 15:16 | Discharge Summary ---
Date of Service December 06, 2021 Admission HPI Per Admitting Provider This is a 21-year-old female who presented to the emergency department secondary to abdominal pain. Patient says that she has been having abdominal pain for several months. She says that the pain is primarily located in her right flank as well as the right upper quadrant. She says that the pain oftentimes come several hours after eating. She says the pain usually self resolves. With the patient's current presentation she notes that she has been having pain for approximately 4 days and it has been constant over this time. Again the patient is located in the right upper quadrant of her abdomen with some radiation to her back. She has had nausea without vomiting. She denies any fevers, shakes, or chills. She notes that the pain is improved with morphine and does not note any provocative factors. Pain currently is not radiating. She denies any prior abdominal surgeries. She notes that her last oral intake was at approximate 12:00 PM today. Concerning past medical history the patient does note that she has hypothyroidism, insulin resistance, and GERD Concerning past surgical history she denies any prior surgeries Concerning social history she is a non-smoker Concerning family history she notes a family history of coronary artery disease Since arrival to the emergency department patient has had labs and imaging which I independent reviewed. CBC revealed white blood cell count, hemoglobin and hematocrit were all normal. Platelet count was 418,000. Chemistry profile showed sodium, potassium, BUN, and creatinine were normal. Patient did not have any elevation of her total bilirubin, transaminases, alkaline phosphatase, or lipase. Urinalysis did show 1+ leukocyte Estrace and 10-30 white blood cells per high-power field along with 3+ bacteria. Urine test was noted to be negative. A COVID test is pending. A gallbladder ultrasound showed that her gallbladder was mildly distended with numerous gallstones. The gallbladder wall was within the upper limits of normal thickness at approximately 3 mm. There is no pericholecystic fluid noted. At the time of my interview the patient was in no distress but did have persistent right upper quadrant pain despite receiving 8 mg of intravenous morphine. Principal Diagnosis cholelithiasis Discharge Exam awake/alert, no distress Gastrointestinal (Abdomen) Inspection/Auscultation: + abdominal surgical incision (c/d/i with skin glue ); abdomen not distended Percussion/Palpation: + abdomen tender (expected nayeli incisional tenderness to palpation ) and abdomen soft Discharge Data Allergies Allergy/AdvReac Type Severity Reaction Status Date / Time No Known Allergies Allergy Unverified 12/05/21 20:17 Consultations 12/05/21 19:38 ED Decision to Admit Stat Procedures Performed Operation Date: 12/06/21 11:00 Actual Procedures p Laparoscopic Cholecystectomy - Anmol Ward DO, FACS Ordered Studies 12/05/21 16:37 US gallbladder Stat Hospital Course (1) Cholelithiasis: This is a 21yF who presented to the [facility] ED on 12/05/21 with complaints of abdominal pain, primarily in the RUQ. RUQ US revealed findings of a mildly distended gallbladder with cholelithiasis. WBC normal. LFTs unremarkable. Patient continued with symptoms of pain despite pain medication. She was admitted under the surgical service and kept NPO with IVF. on 12/06 she went to the OR with Dr. Ward for a laparoscopic cholecystectomy. The patient tolerated the procedure well, see op note for full details. Post op patient had some nausea/vomiting that resolved with prn medications and time. Her diet was then advanced without issues and pain controlled on prn medications. Incisions clean/dry/intact. On POD#0 the patient was deemed stable for discharge to home. Dispo instructions reviewed, she was asked to follow up in clinic within 2 weeks. Total Time Total Time Spent Total Time Spent (In Minutes): 15 Discharge Plan Discharge Items Patient Disposition: Home - Self-Care Reason For Visit: GALLSTONES Discharge Diagnosis: laparoscopic cholecystectomy Activity: Per Instructions section Lifting: No more than 10 pounds Bathing Comment: may shower starting 12/07/21; no soaking in tubs/pools Exercise/Sports: Wait until after follow-up appointment Driving/Machine Use: no driving while taking any narcotics for pain Non-emergency contact: Surgeon Call non-emergency contact if: you have any medication questions, your pain is not controlled, your pain is concerning for you, you have a fever, your temperature is above 101.5, your wound has increased redness, your wound has increased drainage and your wound pain has increased Follow-up/Referrals: Anmol Ward DO, FACS [Physician] - (Please call to schedule follow up in clinic within 2 weeks ) Elvis Garcia MD [Primary Care Provider] - Diet: Regular Addtl Attending Provider Instructions: If you do not need the narcotic, Percocet, for pain you may take plain Tylenol. Do not take Percocet and Tylenol together as they both contain Acetaminophen. You should not exceed>3 grams of Acetaminophen within a 24 hour time period. You may also purchase Ibuprofen over the counter if needed for pain over the next few days. Take with food. -Ibuprofen 200mg-600mg orally every 6-8 hours, as needed for pain. Pending Studies at Discharge: Yes Studies:: surgical pathology Stand-Alone Forms: My [facility], Work/School Release, Smoking Cessation Medications and DC Order Prescriptions: New oxycodone-acetaminophen [Percocet] 5-325 mg tablet 1 - 2 tab PO .q4-6h PRN (Reason: pain, for initial therapy, max 6 tabs per day) Qty: 15 0RF Continued cetirizine [Zyrtec] 10 mg Tablet 10 mg PO DAILY PRN (Reason: ALLERGIES) cyanocobalamin (vitamin B-12) [Vitamin B-12] 1,000 mcg tablet 1,000 mcg PO DAILY triamcinolone acetonide 0.1 % cream 1 applic TOPICAL BID PRN (Reason: flare ups) levothyroxine 25 mcg tablet 25 mcg PO DAILY ondansetron HCl 4 mg tablet 4 mg PO Q6 PRN (Reason: Nausea) ibuprofen 200 mg Tablet 400 mg PO Q6H PRN (Reason: Pain) omeprazole 20 mg capsule,delayed release(DR/EC) 20 mg PO DAILY Rx Instructions: did not start yet metformin 500 mg tablet extended release 24 hr 1,000 mg PO DAILY drospirenone-ethinyl estradiol [Vestura (28)] 3-0.02 mg tablet 1 tab PO DAILY Discharge Orders: Discharge Order (Routine); Ordered 12/06/21 Ordered By: Corinne Aguiar/Other Patient Handouts: After Gallbladder Surgery Admission Data Admit Date/Time: 12/05/21 19:53 Attending Provider: Anmol Ward Admit Provider: Anmol Ward Primary Care Provider: Elvis Garcia Other Providers: Anmol Ward Other Interventions: Discharge Summary Assessment (RN) Last Done: 12/06/21 16:46 Coding Level of Care Code D/C DAY MANAGEMENT <30 MINS Diagnoses Cholelithiasis K80.20 Biliary obstruction: without biliary obstruction Cholecystitis presence: without cholecystitis Cholelithiasis location: gallbladder
== END 2021-12-06 18:23 | disposition home or self-care (01) ==
LOC: 3W 14:12 → ED 14:12 → 3W 12-06 00:49